=== PATIENT | male | born 1950 | race Caucasian/White ===

== ENCOUNTER 2017-01-12 14:51 | Inpatient (IN) | payer OTHER ==
[~2017-01-12] VITALS: Ht 188 cm; Wt 132.0 kg
[~2017-01-12 14:51] MED LIST changes: -ADVAIR HFA120 INHALA IH; -AZITHROMYCIN500 M1 PO; -CYANOCOBALAM1000 MCG PO; -MONTELUKAST SOD10 MG PO; -PREDNISONE20 MG PO; -SPIRIVA RESPIMAT4 GM IH; -THEOPHYLLINE400 MG PO; -VOLTAREN 1% GE100 GM TP; -VOLTAREN50 MG PO; -WELLBUTRIN SR200 MG PO; -XARELTO15 MG PO
[2017-01-12 15:16] LABS: EOSINOPHIL (%) 1.8 % (0-5); EOSINOPHIL COUNT 0.1 K/uL (0-0.3); HEMATOCRIT 41.3 % (38.0-50.0); IMMATURE GRANULOCYTE (%) 0.5 % (0.0-0.7); IMMATURE GRANULOCYTE COUNT 0.3 K/uL; LYMPHOCYTE COUNT 0.9 K/uL (1.0-2.8); MCHC 33.7 G/DL (30.0-36.0); MEAN PLAT.VOLUME 9.3 uM^3 (9.0-12.4); MONOCYTE (%) 9.5 % (3-12); MONOCYTE COUNT 0.6 K/uL (0-0.8); NEUTROPHIL (%) 73.6 % (45-76); NEUTROPHIL COUNT 4.8 K/uL (1.8-6.4); PLATELET COUNT 199 K/uL (156-360); RBC DIS.WIDTH-CV 13.1 % (11.8-14.6); RBC DIS.WIDTH-SD 43.1 % (39-53); RED BLOOD COUNT 4.49 M/uL (4.00-5.50); WHITE BLOOD COUNT 6.5 K/uL (4.1-10.2)
[2017-01-12 15:25] LABS: CHLORIDE 108 mEq/L (99-109); POTASSIUM 4.2 mEq/L (3.7-5.4); SODIUM 140 mEq/L (136-147)
[2017-01-12 15:26] LABS: PROTHROMBIN TIME 10.5 (9.2-11.2); PTT 27.9 (25-32)
[2017-01-12 15:27] LABS: GLUCOSE 111 mg/dL (70-99)
[2017-01-12 15:29] LABS: ANION GAP 11 MEQ/L (2-14); TOTAL BILIRUBIN 0.6 mg/dL (0.0-1.0)
[2017-01-12 15:31] LABS: ALKALINE PHOSPHATASE 32 IU/L (3-129); GFR ESTIMATE (CALCULATED) 54 mL/min/
[2017-01-12] MEDS ORDERED: THEOPHYLLINE400 MG PO (15:31)
[2017-01-12] MEDS ORDERED: VOLTAREN50 MG PO (15:31)
[2017-01-12] MEDS ORDERED: CYANOCOBALAM1000 MCG PO (15:31)
[2017-01-12] MEDS ORDERED: GABAPENTIN300 MG PO (15:31)
[2017-01-12] MEDS ORDERED: WELLBUTRIN SR200 MG PO (15:31)
[2017-01-12 15:32] LABS: UREA NITROGEN (BUN) 20 mg/dL (9-23)
[2017-01-12] MEDS ORDERED: VOLTAREN 1% GE100 GM TP (15:32)
[2017-01-12] MEDS ORDERED: MONTELUKAST SOD10 MG PO (15:32)
[2017-01-12 15:38] LABS: TROP-I INTERPRETATION NEGATIVE; TROPONIN-I < 0.01 ng/mL (0.0-0.30)
[2017-01-12 17:07] LABS: SAMPLE HEMOLYSIS CHECK 0; SAMPLE ICTERIC CHECK 0; SAMPLE LIPEMIA CHECK 0
[2017-01-12 17:13] LABS: HDL CHOLESTEROL 37 MG/DL (Desirable>=40); LDL CHOLESTEROL 108 mg/dL (Desirable<100); NON-HDL CHOLESTEROL 121 mg/dL (Desirable<160); TOTAL CHOLESTEROL 158 mg/dL (Desirable<200); TRIGLYCERIDES 67 MG/DL (Normal: <150)
[2017-01-12 21:26] VITALS: BP 118/75
[2017-01-12 21:46] LABS: TROP-I INTERPRETATION NEGATIVE; TROPONIN-I < 0.01 ng/mL (0.0-0.30)
[2017-01-13 00:38] VITALS: BP 134/92
[2017-01-13 03:48] VITALS: BP 113/60
[2017-01-13 04:26] LABS: CHLORIDE 109 mEq/L (99-109); POTASSIUM 4.4 mEq/L (3.7-5.4); SODIUM 141 mEq/L (136-147)
[2017-01-13 04:28] LABS: GLUCOSE 92 mg/dL (70-99)
[2017-01-13 04:29] LABS: ANION GAP 11 MEQ/L (2-14)
[2017-01-13 04:31] LABS: GFR ESTIMATE (CALCULATED) > 59 mL/min/
[2017-01-13 04:32] LABS: UREA NITROGEN (BUN) 19 mg/dL (9-23)
[2017-01-13 04:34] LABS: TROP-I INTERPRETATION NEGATIVE; TROPONIN-I < 0.01 ng/mL (0.0-0.30)
[2017-01-13 08:06] VITALS: BP 119/751
[2017-01-13 10:57] VITALS: BP 106/72
[2017-01-13 18:10] VITALS: BP 122/74
[2017-01-13 23:05] VITALS: BP 114/62
[2017-01-14 02:52] VITALS: BP 118/67
[2017-01-14 07:20] VITALS: BP 133/74
[2017-01-14] MEDS ORDERED: XARELTO15 MG PO (10:53)
[2017-01-14] MEDS ORDERED: PREDNISONE20 MG PO (10:53)
[2017-01-14] MEDS ORDERED: ADVAIR HFA120 INHALA IH (10:53)
[2017-01-14] MEDS ORDERED: SPIRIVA RESPIMAT4 GM IH (10:53)
[2017-01-14] MEDS ORDERED: AZITHROMYCIN500 M1 PO (10:53)
[2017-01-14 12:01] VITALS: BP 105/68
== END 2017-01-14 14:40 | disposition home or self-care (01) | DRG 176 ==
LOC: EME 14:51 → EDOF 16:35 → 5WEST 16:35 → 2EAST 01-13 17:53
PROVIDERS: Emergency Medicine; Internal Medicine
DX: I26.99 Other pulmonary embolism without acute cor pulmonale (principal); I82.411 Acute embolism and thrombosis of right femoral vein; N17.9 Acute kidney failure, unspecified; J44.0 Chronic obstructive pulmonary disease with (acute) lower respiratory infection; J20.9 Acute bronchitis, unspecified; J44.1 Chronic obstructive pulmonary disease with (acute) exacerbation; T45.516A Underdosing of anticoagulants, initial encounter; Z91.128 Patient's intentional underdosing of medication regimen for other reason; I27.2 Other secondary pulmonary hypertension; I10 Essential (primary) hypertension; E66.9 Obesity, unspecified; E78.5 Hyperlipidemia, unspecified; Z68.37 Body mass index [BMI] 37.0-37.9, adult; Z86.711 Personal history of pulmonary embolism; Z86.718 Personal history of other venous thrombosis and embolism; Z87.891 Personal history of nicotine dependence
CPT/HCPCS: 80048; 80053; 80061; 83880; 84484; 85025; 85610; 85730; 93005; 93306; 93970; 93975; 94640; 94640 76; 94799; 99202; 99281; 99284; G0378; J2060; J7030; J7512

== ENCOUNTER → 2017-01-12 | Outpatient (CLI) | payer OTHER ==
[~2017-01-12] MED LIST: ADVAIR HFA120 INHALA IH; AZITHROMYCIN500 M1 PO; COUMADIN5 MG PO; CYANOCOBALAM1000 MCG PO; GABAPENTIN300 MG PO; HYDROCODON-ACE1 EAC8 PO; LO-DOSE ASPIRIN81 M1 PO; LOVENOX150 MG/1 M SC; METHYLPREDNISOL32 MG PO; MONTELUKAST SOD10 MG PO; NORCO 5/3251 TABLET PO; OXAYDO5 MG PO; PERCOCET 5/31 TABLET PO; PREDNISONE20 MG PO; SPIRIVA RESPIMAT4 GM IH; THEO-24200 MG PO; THEOPHYLLINE400 MG PO; VOLTAREN 1% GE100 GM TP; VOLTAREN50 MG PO; WARFARIN SODIU7.5 MG PO; WELLBUTRIN SR200 MG PO; XARELTO1 EACH PO; XARELTO15 MG PO
== END | disposition home or self-care (01) ==
LOC: NUC 01-09 11:30
DX: I26.99 Other pulmonary embolism without acute cor pulmonale (principal); R06.02 Shortness of breath
CPT/HCPCS: 71020; 78582; A9540; A9567

== ENCOUNTER 2017-05-24 09:58 | Day surgery (SDC) | payer OTHER ==
[~2017-05-24] VITALS: Ht 188 cm; Wt 127.0 kg
[~2017-05-24 09:58] MED LIST changes: +ADVAIR HFA120 INHALA IH; +AZITHROMYCIN500 M1 PO; +CYANOCOBALAM1000 MCG PO; +CYMBALTA30 MG PO; +MONTELUKAST SOD10 MG PO; +PREDNISONE20 MG PO; +SPIRIVA RESPIMAT4 GM IH; +THEOPHYLLINE400 MG PO; +VOLTAREN 1% GE100 GM TP; +VOLTAREN50 MG PO; +WELLBUTRIN SR200 MG PO; +XARELTO15 MG PO; +XARELTO20 MG PO
== END 2017-05-24 19:45 | disposition home or self-care (01) ==
LOC: CATH 09:58
PROC: B2111ZZ Fluoroscopy of Multiple Coronary Arteries using Low Osmolar Contrast (ICD-10-PCS; principal; 2017-05-24)
PROC: 4A023N7 Measurement of Cardiac Sampling and Pressure, Left Heart, Percutaneous Approach (ICD-10-PCS; principal; 2017-05-24)
DX: R07.9 Chest pain, unspecified (principal); R06.02 Shortness of breath; I10 Essential (primary) hypertension; E78.5 Hyperlipidemia, unspecified; J44.9 Chronic obstructive pulmonary disease, unspecified; G47.33 Obstructive sleep apnea (adult) (pediatric); E66.9 Obesity, unspecified; Z68.37 Body mass index [BMI] 37.0-37.9, adult; Z86.711 Personal history of pulmonary embolism; Z86.718 Personal history of other venous thrombosis and embolism; Z79.01 Long term (current) use of anticoagulants; Z87.891 Personal history of nicotine dependence; Z82.49 Family history of ischemic heart disease and other diseases of the circulatory system
CPT/HCPCS: C1769; C1887; J0153; J1200; J1644; J2250; J2765; J2930; J3010; J7050; S0028

== ENCOUNTER 2017-09-10 11:51 | Emergency (ER) | payer OTHER ==
[~2017-09-10] VITALS: Ht 188 cm; Wt 127.8 kg
[2017-09-10 12:04] VITALS: BP 110/86
== END 2017-09-10 14:01 | disposition home or self-care (01) ==
LOC: EME 11:51
PROC: 0HQ1XZZ Repair Face Skin, External Approach (ICD-10-PCS; principal; 2017-09-10)
DX: S09.90XA Unspecified injury of head, initial encounter (principal); S01.81XA Laceration without foreign body of other part of head, initial encounter; W22.8XXA Striking against or struck by other objects, initial encounter; Z87.891 Personal history of nicotine dependence; J44.9 Chronic obstructive pulmonary disease, unspecified; I10 Essential (primary) hypertension; Z86.718 Personal history of other venous thrombosis and embolism; Z87.01 Personal history of pneumonia (recurrent)
CPT/HCPCS: 70450; 99281; 99284